=== PATIENT | male | born 1955 ===

== ENCOUNTER 2019-04-23 04:16 | Inpatient (IN) | payer OTHER, SELFPAY ==
[2019-04-23] MEDS ORDERED: ALBUTEROL 2.5 MG/3 ML NEB SOL ONE (05:10)
[2019-04-23] MEDS ORDERED: IPRATROPIUM BROM 0.5MG/2.5ML ONE (05:10)
[2019-04-23] MEDS ORDERED: METHYLPREDNISOLONE 125 MG INJ ONE (05:10)
[2019-04-23] MEDS ORDERED: NITROGLYCERIN 0.4 MG/TAB SL ONE (05:11)
[2019-04-23 05:28] LABS: Absolute Lymphocytes (CBC) 1.3 K/uL (0.7-4.9); Basophils % 0.7 % (0-1.3); Hematocrit 44.9 % (39.6-49.0); Lymphocytes % 21.1 % (15.3-44.8); MPV 8.5 fL (7.6-11.3); RBC Red Blood Cell Count 6.07 M/uL (4.33-5.43)
[2019-04-23 05:47] LABS: Albumin 3.3 g/dL (3.4-5.0); Bilirubin Total 0.6 mg/dL (0.2-1.0); Potassium 5.2 mmol/L (3.5-5.1); Protein, Total 7.9 g/dL (6.4-8.2); Troponin (Emerg Dept Use Only) 0.1 ng/mL (0.0-0.045)
[2019-04-23] MEDS ORDERED: METOPROLOL TARTRATE 5 MG/5 ML INJ IV ONE (06:10)
--- NOTE | 2019-04-23 07:08 | ER ---
Nurse's Notes [facility] Name: Ricardo Zuniga Age: 63 yrs Sex: Male : 1955 Arrival Date: 04/23/2019 Time: 04:21 Bed 18 Private MD: Diagnosis: acute kidney injury;Uncontrolled hypertension;Hypertensive urgency;shortness of breath Presentation: 04/23 04:35 Presenting complaint: Patient states: he awoke to go to restroom, pt became SOB. ak1 Transition of care: patient was not received from another setting of care. Onset of symptoms was April 23, 2019. Risk Assessment: Do you want to hurt yourself or someone else? Patient reports no desire to harm self or others. Initial Sepsis Screen: Does the patient meet any 2 criteria? No. Patient's initial sepsis screen is negative. Does the patient have a suspected source of infection? No. Patient's initial sepsis screen is negative. Care prior to arrival: None. 04:35 Acuity: BRYCE 3 ak1 04:35 Method Of Arrival: Ambulatory ak1 Triage Assessment: 04:35 General: Appears uncomfortable, slender, Behavior is calm, cooperative. ak1 Historical: - Allergies: 04:35 No Known Allergies; ak1 - Home Meds: 04:35 None [Active]; ak1 - PMHx: 04:35 Hypertension; ak1 - PSHx: 04:35 None; ak1 - Immunization history:: Adult Immunizations unknown. - Social history:: Smoking status: Patient uses tobacco products, smokes one-half pack cigarettes per day. - Ebola Screening: : No symptoms or risks identified at this time. Screenin:28 Abuse screen: Denies threats or abuse. Nutritional screening: No deficits noted. jb4 Tuberculosis screening: No symptoms or risk factors identified. Fall Risk None identified. Assessment: 04:28 General: Appears distressed, uncomfortable, Behavior is cooperative, anxious. Pain: jb4 Denies pain. Neuro: Level of Consciousness is awake, alert, obeys commands, Oriented to person, place, time, situation. Cardiovascular: Patient's skin is warm and dry. Rhythm is sinus rhythm. Respiratory: Airway is patent Respiratory effort is labored, pursed lip, Respiratory pattern is regular, symmetrical, Breath sounds are clear in left upper lobe and left lower lobe Breath sounds are diminished in right upper lobe, right middle lobe, right lower lobe, left posterior upper lobe, right posterior upper lobe, left posterior lower lobe, right posterior middle lobe and right posterior lower lobe Breath sounds with wheezes in right upper lobe, right middle lobe and right lower lobe. GI: No deficits noted. No signs and/or symptoms were reported involving the gastrointestinal system. : No deficits noted. No signs and/or symptoms were reported regarding the genitourinary system. EENT: No deficits noted. No signs and/or symptoms were reported regarding the EENT system. Derm: Skin is intact, Skin is dry, Skin is normal, Skin temperature is warm. Musculoskeletal: Circulation, motion, and sensation intact. Range of motion: intact in all extremities. 05:48 Reassessment: Patient appears in no apparent distress at this time. Patient and/or jb4 family updated on plan of care and expected duration. Pain level reassessed. Patient is alert, oriented x 3, equal unlabored respirations, skin warm/dry/pink. Patient denies pain at this time. Patient states feeling better. Patient states symptoms have improved. Respiratory: Airway is patent Respiratory effort is even, unlabored, Respiratory pattern is regular, symmetrical, Breath sounds are clear bilaterally. 06:48 Reassessment: Patient appears in no apparent distress at this time. Patient and/or jb4 family updated on plan of care and expected duration. Pain level reassessed. PT is resting in bed with eyes closed, respirations even and unlabored. 07:30 Reassessment: Patient appears in no apparent distress at this time. Patient and/or ph family updated on plan of care and expected duration. Pain level reassessed. Pt resting comfortably w/ eyes closed, respirations even and unlabored. 08:30 Reassessment: Patient appears in no apparent distress at this time. No changes from ph previously documented assessment. 09:35 Reassessment: Patient appears in no apparent distress at this time. Patient and/or ph family updated on plan of care and expected duration. Pain level reassessed. Patient is alert, oriented x 3, equal unlabored respirations, skin warm/dry/pink. Pt ambulated to restroom, urine sample obtained, report called to [facility] on 4th. 09:45 Reassessment: Pt sitting up in bed eating, will finish breakfast before going upstairs. ph 10:05 Reassessment: Patient appears in no apparent distress at this time. Dr Comer at bedside ph to speak w/ pt before going up to 4th floor. Vital Signs: 04:29 BP 223 / 100; Pulse 91; Resp 18; Temp 97.3(O); Pulse Ox 93% on R/A; Weight 49.9 kg (R); ak1 Height 5 ft. 2 in. (157.48 cm) (R); Pain 0/10; 05:44 BP 189 / 103; Pulse 89; Resp 16; Pulse Ox 96% on R/A; mt 05:45 BP 189 / 103; Pulse 92; Resp 18; Pulse Ox 97% on R/A; jb4 06:45 BP 170 / 86; Pulse 70; Resp 19; Pulse Ox 96% on R/A; jb4 08:00 BP 165 / 88; Pulse 72; Resp 16; Pulse Ox 97% on R/A; ph 09:22 BP 177 / 93; Pulse 73; Resp 18; Temp 97.9; Pulse Ox 96% on R/A; ph 04:29 Body Mass Index 20.12 (49.90 kg, 157.48 cm) ak1 ED Course: 04:21 Patient arrived in ED. ag3 04:23 Jesus Stacy, ELI is Primary Nurse. jb4 04:28 Patient has correct armband on for positive identification. Bed in low position. Call jb4 light in reach. Side rails up X 1. day care aide on. Pulse ox on. NIBP on. 04:29 Arm band placed on Patient placed in an exam room, on a stretcher, on pulse oximetry. ak1 04:32 EKG done, by ED staff, reviewed by Jerry Bee MD. mt 04:36 Triage completed. ak1 04:45 Jerry Bee MD is Attending Physician. ps1 05:19 Missed attempt(s): 22 gauge in left forearm. mt 05:40 Inserted saline lock: 20 gauge in right antecubital area, using aseptic technique. jb4 05:48 X-ray completed. Portable x-ray completed in exam room. Patient tolerated procedure kw well. 05:50 CXR XRAY In Process Unspecified. EDMS 07:06 Salvador Comer MD is Hospitalizing Provider. ps1 09:24 No provider procedures requiring assistance completed. Patient admitted, IV remains in ph place. Administered Medications: 05:15 Drug: Nitroglycerin 0.4 mg Route: Sublingual; jb4 05:15 Drug: DuoNeb (3:1) (2.5 mg - 0.5 mg) 3 ml Route: Nebulizer; jb4 05:48 Follow up: Response: No adverse reaction; Wheezing diminished jb4 05:35 Drug: Nitroglycerin 0.4 mg Route: Sublingual; jb4 05:40 Drug: Nitroglycerin 0.4 mg Route: Sublingual; jb4 05:47 Follow up: Response: No adverse reaction; Blood pressure is lowered jb4 05:44 Drug: SOLU-Medrol 125 mg Route: IVP; Site: right antecubital; jb4 06:50 Follow up: Response: No adverse reaction jb4 06:22 Drug: Metoprolol 5 mg Route: IVP; Site: right antecubital; jb4 06:50 Follow up: Response: No adverse reaction; Blood pressure is lowered jb4 Outcome: 07:07 Decision to Hospitalize by Provider. ps1 09:38 Admitted to Tele accompanied by tech, via wheelchair, room 413, with chart, Report ph called to ELI Holman 09:38 Condition: stable 09:38 Instructed on the need for admit. 10:18 Patient left the ED. rb1 Signatures: Dispatcher [employer] EDMS Kiesha Aleman Amber RN RN ak1 Maame Bermudez RN RN ph April Meredith RN RN rb1 Jesus Stacy RN RN jb4 Lisa Edouard mt, Phillip, MD MD ps1 Gomez, Alice ag3 Corrections: (The following items were deleted from the chart) 05:48 04:28 Cardiovascular: Patient's skin is warm and dry. jb4 jb4
--- NOTE | 2019-04-23 07:09 | EDPHYS ---
Physician Documentation [facility] Name: Ricardo Zuniga Age: 63 yrs Sex: Male : 1955 Arrival Date: 04/23/2019 Time: 04:21 Bed 18 Private MD: ED Physician Jerry Bee Historical: - Allergies: 04/23 04:35 No Known Allergies; ak1 - Home Meds: 04:35 None [Active]; ak1 - PMHx: 04:35 Hypertension; ak1 - PSHx: 04:35 None; ak1 - Immunization history:: Adult Immunizations unknown. - Social history:: Smoking status: Patient uses tobacco products, smokes one-half pack cigarettes per day. - Ebola Screening: : No symptoms or risks identified at this time. Vital Signs: 04:29 BP 223 / 100; Pulse 91; Resp 18; Temp 97.3(O); Pulse Ox 93% on R/A; Weight 49.9 kg (R); ak1 Height 5 ft. 2 in. (157.48 cm) (R); Pain 0/10; 05:44 BP 189 / 103; Pulse 89; Resp 16; Pulse Ox 96% on R/A; mt 05:45 BP 189 / 103; Pulse 92; Resp 18; Pulse Ox 97% on R/A; jb4 06:45 BP 170 / 86; Pulse 70; Resp 19; Pulse Ox 96% on R/A; jb4 08:00 BP 165 / 88; Pulse 72; Resp 16; Pulse Ox 97% on R/A; ph 09:22 BP 177 / 93; Pulse 73; Resp 18; Temp 97.9; Pulse Ox 96% on R/A; ph 04:29 Body Mass Index 20.12 (49.90 kg, 157.48 cm) ak1 MDM: 05:01 Patient medically screened. ps1 04/23 05:01 Order name: CBC with Diff; Complete Time: 05:57 ps1 04/23 05:01 Order name: CMP; Complete Time: 05:57 ps1 04/23 05:01 Order name: Troponin (emerg Dept Use Only); Complete Time: 05:57 ps1 04/23 05:01 Order name: CXR XRAY ps1 04/23 08:14 Order name: Urinalysis W/Microscopic EDMS 04/23 09:50 Order name: Urine Dipstick--Ancillary (enter results) 04/23 08:01 Order name: EKG Electrocardiogram; Complete Time: 08:21 EDHI 04/23 08:04 Order name: Diet Heart Healthy; Complete Time: 08:06 ph Administered Medications: 05:15 Drug: Nitroglycerin 0.4 mg Route: Sublingual; jb4 05:15 Drug: DuoNeb (3:1) (2.5 mg - 0.5 mg) 3 ml Route: Nebulizer; jb4 05:48 Follow up: Response: No adverse reaction; Wheezing diminished jb4 05:35 Drug: Nitroglycerin 0.4 mg Route: Sublingual; jb4 05:40 Drug: Nitroglycerin 0.4 mg Route: Sublingual; jb4 05:47 Follow up: Response: No adverse reaction; Blood pressure is lowered jb4 05:44 Drug: SOLU-Medrol 125 mg Route: IVP; Site: right antecubital; jb4 06:50 Follow up: Response: No adverse reaction jb4 06:22 Drug: Metoprolol 5 mg Route: IVP; Site: right antecubital; jb4 06:50 Follow up: Response: No adverse reaction; Blood pressure is lowered jb4 Disposition: 04/23/19 07:07 Hospitalization ordered by Salvador Comer for Inpatient Admission. Preliminary diagnosis are acute kidney injury, Uncontrolled hypertension, Hypertensive urgency, shortness of breath. - Bed requested for Telemetry/MedSurg (Inpatient). - Status is Inpatient Admission. rb1 - Condition is Stable. - Problem is new. - Symptoms have improved. UTI on Admission? No Signatures: Dispatcher [employer] [facility] Giselle Sheriff RN RN Mandy Bhatia RN RN ak1 April Meredith, RN RN rb1 Jesus Stacy, RN RN jb4 Jerry Bee MD MD ps1 Corrections: (The following items were deleted from the chart) 09:02 07:07 Hospitalization Ordered by Salvador Comer MD for Inpatient Admission. Preliminary ss diagnosis is acute kidney injury; Uncontrolled hypertension; Hypertensive urgency; shortness of breath. Bed requested for Telemetry/MedSurg (Inpatient). Status is Inpatient Admission. Condition is Stable. Problem is new. Symptoms have improved. UTI on Admission? No. ps1 10:18 09:02 04/23/2019 07:07 Hospitalization Ordered by Salvador Comer MD for Inpatient rb1 Admission. Preliminary diagnosis is acute kidney injury; Uncontrolled hypertension; Hypertensive urgency; shortness of breath. Bed requested for Telemetry/MedSurg (Inpatient). Status is Inpatient Admission. Condition is Stable. Problem is new. Symptoms have improved. UTI on Admission? No. ss
--- NOTE | 2019-04-23 08:50 | RAD REPORT ---
EXAM DESCRIPTION: Amie Single View04/23/2019 5:48 am CLINICAL HISTORY: Shortness of breath COMPARISON: none FINDINGS: Mild to moderate bibasilar interstitial lung opacities. Upper lobes appear clear Heart is mildly enlarged. Calcification is present within the medial left hemithorax IMPRESSION: Mild to moderate bilateral interstitial lung opacities. These all may be chronic. Combin ation of an acute process such as atypical pneumonia or pneumonitis superimposed over chronic changes another consideration Calcification medial left hemithorax may represent calcified lymph nodes or calcification of the pleu ra
[2019-04-23] MEDS ORDERED: ONDANSETRON 4 MG/2 ML VIAL IV PRN (09:34)
[2019-04-23] MEDS ORDERED: NA CHLORIDE 0.9% 1,000 ML IV SCH (09:34)
[2019-04-23] MEDS ORDERED: ACETAMINOPHEN 500 MG TAB PO PRN (09:34)
[2019-04-23] MEDS: METHYLPREDNISOLONE 40 MG INJ IV SCH ×2 (10:00→16:24)
[2019-04-23 10:53] LABS: Urine Appearance CLEAR; Urine Bilirubin NEGATIVE (NEG); Urine Blood 1+ (NEG); Urine Color YELLOW; Urine Glucose NEGATIVE (NEG); Urine Protein 2+ (NEG); Urine Urobilinogen 0.2 mg/dL (0.2-1.0)
[2019-04-23] MEDS ORDERED: SOD POLYSTYREN SUL 15 GM/60 ML UCUP PO ONE (11:17)
[2019-04-23 11:18] LABS: Urine Amorphous Sediment 1+ /HPF (NONE SEEN); Urine Bacteria <20 /HPF (NONE SEEN); Urine Culture Reflex Order NOT NEEDED; Urine RBC <5 /HPF (NONE SEEN)
[2019-04-23 11:28] LABS: Urine Blood 2+ (NEG); Urine Glucose NEGATIVE (NEG); Urine Protein 3+ (NEG); Urine Specific Gravity 1.015 (1.005-1.030); Urine pH 5.5 (5.0-7.0)
[2019-04-23] MEDS: NA CHLORIDE 0.9% 1,000 ML IV SCH (11:43)
[2019-04-23] MEDS: HYDRALAZINE HCL 25 MG TABLET PO SCH ×2 (11:43→21:15)
--- NOTE | 2019-04-23 12:26 | EKG ---
Test Date: 2019-04-23 Test Time: 04:30:36 Exam Proctor: MARYLIN MEASUREMENT RESULTS: Intervals: Rate: 79 MI: 140 QRSD: 88 QT: 400 QTc: 458 [place]: P: 79 MI: 140 QRS: -68 T: 79 INTERPRETIVE STATEMENTS: Normal sinus rhythm Left atrial enlargement Left axis deviation Left ventricular hypertrophy with repolarization abnormality Abnormal ECG No previous ECG available for comparison Electronically Signed On 04-23-19 12:25:02 CDT by Kermit Alcantara
[2019-04-23] MEDS ORDERED: LABETALOL HCL 100 MG/20 ML IV ONE (13:07)
--- NOTE | 2019-04-23 13:21 | RAD REPORT ---
EXAM DESCRIPTION: US - Renal Ultrasound-Complete - 04/23/2019 1:10 pm CLINICAL HISTORY: Acute renal insufficiency COMPARISON: None. FINDINGS: The right kidney measures 10 cm with an increased echotexture. A 1 centimeter cyst The left kidney measures 6 cm with an increased echotexture. 1.5 centimeter hypoechoic mass Hydronephrosis is not seen. No gross abnormality of bladder is seen IMPRESSION: Increased renal echotexture consistent with parenchymal disease 1.5 centimeter hypoechoic mass within the left kidney is indeterminate. Follow-up ultrasound in 3 mon ths recommended to assess stability
[2019-04-23 13:39] LABS: Urine Appearance CLEAR; Urine Bilirubin NEGATIVE (NEG); Urine Blood 2+ (NEG); Urine Color YELLOW; Urine Glucose NEGATIVE (NEG); Urine Protein 3+ (NEG); Urine Urobilinogen 0.2 mg/dL (0.2-1.0)
[2019-04-23 13:40] LABS: Urine Protein/Creatinine Ratio 5.66 ratio (<0.15)
[2019-04-23 13:44] LABS: Urine Microscopic Reflex ORDER UMIC
[2019-04-23 13:47] LABS: Urine Bacteria <20 /HPF (NONE SEEN); Urine Culture Reflex Order NOT NEEDED; Urine Mucus 1+ /HPF (NONE SEEN)
[2019-04-23] MEDS: IPRATROPIUM BROM 0.5MG/2.5ML NEB SCH ×2 (14:15→20:00)
[2019-04-23] MEDS: ALBUTEROL 2.5 MG/3 ML NEB SOL NEB SCH ×2 (14:15→20:00)
[2019-04-23] MEDS ORDERED: HYDRALAZINE HCL 20 MG/ML VIAL IV ONE (14:30)
--- NOTE | 2019-04-23 14:52 | CON ---
Date of Consultation: 04/23/2019 Reason For Consultation: Elevated BUN and creatinine. 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 According to him, at that time, he told him his creatinine in the 2s. The patient came to the hospital complaining of shortness of breath, c hest tightness, found to have elevation of BUN and creatinine, marginal hyperkalemia, and acidosis. For that reason, the patient was admitted and we have been consulted. The patient denied taking ibup rofen on a regular basis. According to him, he is taking it maybe once a month. Denied any recent c hange in his medication. No IV contrast. Upon admission, the patient's blood pressure was elevated up to 170. Reviewing his home medication, apparently patient is on only amlodipine. There is no previous lab data except for the patient mentioned that his baseline creatinine around 2. Follow up in [facility]. Allergies: NO KNOWN DRUG ALLERGIES. Social History: Ex-smoker. Denied alcohol. Denied drug abuse. Family History: Positive for hypertension. Positive for end-stage renal disease. Past Surgical History: Partial colon resection. No chemotherapy. Past Medical History: 1.Hypertension since 1999. 2.Chronic kidney disease, baseline creatinine in the 2s. 3.Colon cancer status post resection. No chemotherapy. Review of Systems: Head and Neck: No red eye. No ear pain. GI: No nausea. No vomiting. : No polyuria. No dysuria. No hematuria. EMAIL DEPLOYMENT SPECIALIST: Not applicable. Respiratory: Has shortness of breath. Cardiovascular: Has chest tightness. Endocrine: No polydipsia. Skin: No rash. Neuro: No neuropathy. Musculoskeletal: Has joint pain. Physical Examination: Vital Signs: When I saw the patient, blood pressure 170/97, pulse of 70, afebrile. Chest: Faint crackles on the base. Heart: S1 and S2 regular. Abdomen: Soft, nontender. Extremities: No edema. Neurologic: Alert and oriented x3. No tremor. Nonfocal. Laboratory Data: WBC 6.2, H and H of 14.4/44.9, platelets of 202. Sodium 138, potassium 5.2, bicarb 16, chloride 114, BUN 28, creatinine 2.2. Uric acid is still pending. Calcium 8.8. CK is still pe nding. Troponin was negative. Albumin 3.3. Urinalysis; specific gravity of 1.010, negative for uri ne infection, +2 protein. Current Medications: The patient on include: Norvasc 10 mg, breathing treatment, Lovenox. Imaging: Chest x-ray; cardiomegaly, only mild congestion. Assessment And Plan: 1.Acute kidney injury on chronic kidney disease, unknown baseline, proteinuric. I am going to go ah ead and get full workup for the patient and will monitor. Given the proteinuria, I am going to quant carolee it and send for serology because it is not that common to have that significant proteinuria with only hypertensive nephrosclerosis. I am going to go ahead and also send for PTH to evaluate the plush dresser nicity of the disease. 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 I will decrease the IV fluid to 50 per hour. 2.Hypertension, not controlled. We will place the patient on carvedilol and hydralazine and will fo llow up with the primary. I agree with the [facility]. I am going to be avoiding any SINDY inhibitor or ARB for the time being until clarified baseline kidney function. 3.Congestive heart failure with chest tightness. I am going to go ahead and get echocardiogram. We will get serial EKG. We will follow up with the primary. 4.Hyperkalemia, marginal. No need for Kayexalate for the time being. We will start gentle hydratio n. 5.Acidosis secondary to renal failure. I am going to send for potassium and chloride with sodium to evaluate RTA. Thank you, Dr. Comer, for allowing us to participate in the care of your patient. CHRISTA/LEONIDES Voice ID: [id number] Report ID: [id number]
[2019-04-23] MEDS: ENOXAPARIN 30 MG/0.3 ML SQ SCH (16:23)
[2019-04-23] MEDS: CARVEDILOL 12.5 MG TAB PO SCH (16:24)
--- NOTE | 2019-04-23 17:27 | ECHO ---
HEIGHT: 5 ft 5 in WEIGHT: 110 lb 0 oz DATE OF STUDY: 04/23/[address]: Ban Ackerman MD 2-DIMENSIONAL: YES M.MODE: YES DOPPLER: YES COLOR FLOW: YES TDS: PORTABLE: DEFINITY: BUBBLE STUDY: DIAGNOSIS: ACUTE KIDNEY INJURY CARDIAC HISTORY: CATHERIZATION: NO SURGERY: NO PROSTHETIC VALVE: NO PACEMAKER: NO MEASUREMENTS (cm) DIASTOLIC (NORMALS) SYSTOLIC (NORMALS) IVSd 0.9 (0.6-1.2) LA Diam 4.0 (1.9-4.0) LVEF 57% LVIDd 5.0 (3.5-5.7) LVIDs 3.5 (2.0-3.5) %FS 30% LVPWd 1.3 (0.6-1.2) Ao Diam 3.2 (2.0-3.7) 2 DIMENSIONAL ASSESSMENT: RIGHT ATRIUM: NORMAL LEFT ATRIUM: NORMAL RIGHT VENTRICLE: NORMAL LEFT VENTRICLE: LEFT VENTRICULAR HYPERTROPHY TRICUSPID VALVE: NORMAL MITRAL VALVE: NORMAL PULMONIC VALVE: NORMAL AORTIC VALVE: NORMAL PERICARDIAL EFFUSION: NONE AORTIC ROOT: NORMAL LEFT VENTRICULAR WALL MOTION: NORMAL DOPPLER/COLOR FLOW: MILD TO MODERATE AORTIC REGURGITATION. COMMENTS: MILD TO MODERATE AORTIC REGURGITATION. NORMAL LEFT VENTRICULAR EJECTION FRACTION. LEFT VENTRICULAR HYPERTROPHY. NO WALL MOTION ABNORMALITY. NO EFFUSION. TECHNOLOGIST: DANIEL CHAPPELL
[2019-04-23] MEDS: DULERA 100/5 (MOMETASONE/FORMOTEROL) INHALER IH SCH (21:14)
--- NOTE | 2019-04-23 21:23 | CON ---
Date of Consultation: 04/23/2019 Reason For Consultation: Hypertensive crisis and troponin of 0.1. History Of Present Illness: Mr. Zuniga is a 63-year-old black male who lives in [place], was here on vacation and developed chest substernal chest pressure without any radiation. Denied any nausea, vomiting, diaphoresis, PND, orthopnea, pedal edema, palpitations, or syncope. His symptoms were non exertional, nonradiating. He was noted to have a creatinine of 2.27. When he came into the hospital , systolic blood pressure was more than 200. His EKG showed LVH. Troponin showed 0.1. Symptoms are relieved now. The only medication he takes at home is amlodipine 10 mg daily. Past Medical History: Includes hypertension. Review of Systems: Negative. Social History: Negative for tobacco, alcohol, or drugs. Family History: Noncontributory. Medications: Include amlodipine. Physical Examination: Vital Signs: When I saw him, his pressure was 170/97, sinus rhythm. General: No acute distress. HEENT: Negative. Neck: Supple with no bruit, lymphadenopathy, JVD, or thyromegaly. Chest: Clear to auscultation and percussion. Cardiac: Revealed a regular rhythm and rate with S4 gallops. Abdomen: Benign. Extremities: Revealed no clubbing, cyanosis, or edema. Diagnostic Data: As stated earlier. Impression And Plan: Chest pressure, most likely secondary to severe hypertension, over 200. The tr oponin is probably related to the same. He has creatinine of 2.27 and I am certainly not anxious to do a heart catheterization on him with creatinine like that. I think we need to do an echocardiogram , which is pending. I think he should have an addition to his amlodipine, either hydralazine or beta -sadiq or a combination thereof. I recommended strongly that when he goes back home to [place] to get with his doctor, so he can get a stress test as an outpatient. If the echo is normal and blood pressure is better, he can certainly go home today. EMILI/LEONIDES Voice ID: [id number] Report ID: [id number]
--- NOTE | 2019-04-23 23:59 | HP ---
Date of Admission: 04/23/2019 Chief Complaint: Shortness of breath. Code status: Full History Of Present Illness: Patient is a 63-year-old male with past medical history of hypertension and undiagnosed COPD, who has been smoking for over 50 years, comes in with sudden onset of shortness of breath, wheezing, difficulty with worsening with exertion. Patient's shortness of breath, improved with rest. He felt that he had some chest tightness and was unable to catch his breath. Patient also reports that he has been out of his blood pressure medication for the past month. He lives in [place], however, currently is visiting his daughter and is on vacation. No known history of kidney disease. Patient came into the ER for further evaluation. Upon arrival, his blood pressure was elevated at 223/100. Patient was given metoprolol IV, which improved his blood pressure. He was given nitroglycerin sublingual as well as breathing treatments and steroids. Patient's condition improved with treatment , however, still was not back to baseline. Patient's workup revealed elevated kidney function of 2.27, unknown baseline. Potassium was elevated at 5.2. Patient was then referred for admission. When seen in the ER, he was awake, alert, oriented x3, appeared to be in some mild respiratory distress. Past Medical History: Hypertension and likely undiagnosed COPD. Past Surgical History: Patient had colon perforation, unclear if this is colon or small bowel, however, states that he had surgery a year ago with end-to-end anastomosis. Allergies: NO KNOWN DRUG ALLERGIES. Medications: Currently, not taking any medications for the past month. Social History: Patient smokes pack a day, has been smoking for approximately 50 years. Denies any alcohol use or illicit drug use. Lives in [place]. Family History: Denies any premature coronary artery disease in the family. Review of Systems: An 11-point system reviewed, negative except as per HPI. Physical Examination: Vital Signs: Blood pressure 223/100, pulse 91, respirations 18, temperature 97.3, O2 of 93% on room air. Blood pressure improved to 177/93 with treatment. BMI is 20. HEENT: Normocephalic, atraumatic PERRLA. EOMI moist mucous membranes. Oropharynx is clear. General: Awake, alert, oriented x3. Some mild distress, frail, cachectic appearing male. Neck: Supple. No JVD trachea midline. CV: S1, S2. Regular rate and rhythm. Peripheral pulses weak bilaterally. Respiratory: Diminished breath sounds some wheezing present. No use of accessory muscles. No stridor. Gastrointestinal: Abdomen is soft, nontender, nondistended. Positive bowel sounds. No guarding or rigidity. No thyromegaly. Extremities: No clubbing, cyanosis, or edema. No calf tenderness. Neuro: Cranial nerves 2-12 intact grossly. No focal neurological deficits. Speech is normal. Strength is symmetric in bilateral upper and lower extremities. Skin: No rashes. Normal skin turgor. Psych: Mood is okay. Affect is full. Insight and judgment are good. Laboratory Data: Sodium 138, potassium 5.2, chloride 114, CO2 of 16, BUN 28, creatinine 2.7, glucose 82, calcium 8.8, troponin 0.10, albumin 3.3. WBC 6.2, H and H 14.4 and 44.9, platelets 202. UA: Negative nitrite, negative leukocyte esterase. Microscopy is pending. Chest x-ray shows small to moderate bilateral interstitial lung opacities. These all may be chronic combination of an acute process such as atypical pneumonia or pneumonitis superimposed over chronic changes is another consideration. Calcification of the medial left hemithorax may represent calcified lymph nodes or calcification of the pleura. Assessment And Plan: A 63-year-old male with: 1. Hypertensive emergency. Patient's blood pressure is 200/100s, improved with nitroglycerin and Lopressor. Patient has been out of his blood pressure medications for the past month. We will restart home medications and use hydralazine p.r.n. for systolic greater than 160. Patient seemed to have end- organ damage with acute kidney injury. 2. Acute kidney injury, unknown baseline. We will consult Nephrology. Continue with IV fluids and monitor creatinine level. Avoid NSAIDs. 3. Hyperkalemia. Potassium is 5.2. We will give Kayexalate and repeat potassium level likely secondary to acute kidney injury. 4. Elevated troponin level likely secondary to hypertensive emergency. Patient denies any chest pain, initially had some chest tightness, most likely related to chronic obstructive pulmonary disease. 5. Acute chronic obstructive pulmonary disease exacerbation. We will continue with steroids and breathing treatments. Patient will need to be discharged on some maintenance inhalers and he will need pulmonary function testing as an outpatient. Chest x-ray shows some chronic changes. Doubt any pneumonia. We will check procalcitonin level. WBC count is normal. No indications for antibiotics at this time. No fevers or chills. Does not appear to be septic. 6. Cachexia with failure to thrive. BMI of 18. Patient denies any recent weight loss. Patient needs to have cancer screenings, may be related to chronic smoking. 7. Gastrointestinal and deep venous thrombosis prophylaxis with ranitidine and Lovenox renally dosed. Plan: Admit the patient to Med-Surg, place as inpatient. Length of stay greater than 2 midnights. SURESH Voice ID: [id number] MTDD
[2019-04-24] MEDS: METHYLPREDNISOLONE 40 MG INJ IV SCH ×2 (00:29→09:26)
[2019-04-24] MEDS: ALBUTEROL 2.5 MG/3 ML NEB SOL NEB SCH ×4 (02:00→19:55)
[2019-04-24] MEDS: IPRATROPIUM BROM 0.5MG/2.5ML NEB SCH ×4 (02:00→19:55)
[2019-04-24 04:17] LABS: Absolute Lymphocytes (CBC) 0.6 K/uL (0.7-4.9); Hematocrit 39.5 % (39.6-49.0); Lymphocytes % 6.3 % (15.3-44.8); RBC Red Blood Cell Count 5.37 M/uL (4.33-5.43)
[2019-04-24 04:44] LABS: Albumin 2.9 g/dL (3.4-5.0); Bilirubin Total 0.4 mg/dL (0.2-1.0); Blood Morphology Comment NOT SEEN (NOT SEEN); Magnesium 1.7 mg/dL (1.8-2.4); Phosphorus 3.1 mg/dL (2.5-4.9); Platelet Estimate ADEQ; Potassium 3.6 mmol/L (3.5-5.1); Protein, Total 6.9 g/dL (6.4-8.2); Thyroid Stimulating Hormone 1.02 uIU/mL (0.360-3.740); Urine White Blood Cell Casts OK
[2019-04-24] MEDS: CARVEDILOL 12.5 MG TAB PO SCH (06:21)
[2019-04-24] MEDS: NA CHLORIDE 0.9% 1,000 ML IV SCH (06:23)
[2019-04-24] MEDS: DULERA 100/5 (MOMETASONE/FORMOTEROL) INHALER IH SCH ×2 (09:00→21:00)
[2019-04-24] MEDS ORDERED: AMLODIPINE 5 MG TAB PO ONE (09:05)
[2019-04-24] MEDS: HYDRALAZINE HCL 25 MG TABLET PO SCH ×3 (09:26→22:14)
--- NOTE | 2019-04-24 11:08 | PN ---
Mr. Zuniga is feeling fine. Never had any chest pain. He had a troponin level of 0.1 associated w ith very high blood pressure and a creatinine of 2.44. It is actually worse today than yesterday. H is blood pressure is still not under good control, although it is markedly better than it was. Mr. Gilberto fitzpatrick has a history of poor medical compliance. He was not on any medications when he came in. Tod ay, he is feeling well. I think we should probably add amlodipine to his present regimen and get his blood pressure little lower. I would not worry about amlodipine being detrimental to the kidneys at all, but he needs to have a systolic blood pressure below 140, have any hope of his kidneys getting better, so far, they are getting worse. YURI/LEONIDES Voice ID: [id number] Report ID: [id number]
[2019-04-24 13:30] LABS: Rheumatoid Factor NEG (NEG)
--- NOTE | 2019-04-24 15:09 | PN ---
Date of Progress Note: 04/24/2019 Subjective: Patient was admitted with uncontrolled hypertension and chest pain. Physical Examination: Vital Signs: Today, blood pressure of 163/99, pulse of 68. Chest: Clear to auscultation. Heart: S1, S2. Systolic murmur. Abdomen: Soft, nontender. Extremities: No edema. Laboratory Data: H and H 12.6/39.5. Sodium 140, potassium 3.6, bicarb 15, BUN 34, creatinine 2.4, c alcium 8, phosphorus 3.1, magnesium 1.7. PTH 164. Urinalysis, +2 blood. P-C ratio is 5. Serology is still pending. Renal ultrasound showing 10/6 small left kidney. Current Medications: Amlodipine 5, carvedilol 12.5, hydralazine 25 t.i.d. Assessment And Plan: 1.Chronic kidney disease, possible secondary to renal artery stenosis given the severe disproportion in the kidney size. Normal volume. No uremic symptoms. Proteinuric with nephrotic range proteinur ia. Patient is going to need full workup as outpatient including possible need for kidney biopsy and MRA for his renal artery evaluation and given the presence of the nephrotic range proteinuria as I m entioned, patient may need kidney biopsy and patient is going to need to follow up with the serology. Patient does not live here in town and would like to go back to his city in [place]. I gave the p atient my information and I told him to see a continuous improvement coordinator right away and I will be more than happy t o speak to that continuous improvement coordinator. Patient verbalized understanding. 2.Hypertension, possible renal artery stenosis, as above. Continue current medication. 3.Nephrotic range proteinuria. I am going to be reluctant currently to add any SINDY inhibitor or ARB given the picture of possible renal artery stenosis and given the unknown baseline for the time erasmoin g. Continue current treatment for the time being. We will follow up serology. Patient needs to rul e out from membranous given the history of malignancy that is the reason we are proposing for kidney biopsy. 4.Acidosis. I will start the patient on oral bicarb. 5.Bronchitis, chronic obstructive pulmonary disease exacerbation. As up above with the primary. CHRISTA/LEONIDES Voice ID: [id number] Report ID: [id number]
--- NOTE | 2019-04-24 16:48 | PN ---
Date of Progress Note: 04/24/2019 Subjective: Patient seen and examined, chart reviewed, and case discussed with RN and Dr. Ackerman. Patient is doing better, still has uncontrolled blood pressure, no longer having any chest tightness . Shortness of breath has improved, but not back to baseline. Medication List: Reviewed. Physical Examination: Vital Signs: Temperature 98.5, heart rate 94, blood pressure 175/80, respirations 20, O2 93% on room air. General: Awake, alert, oriented x3, not in any acute distress, elderly male, frail, cachectic. BMI 18. CV: S1, S2. Regular rate and rhythm. Peripheral pulses present. Respiratory: Diminished breath sounds. Wheezing has resolved. No stridor. No use of accessory mus cles. Gastrointestinal: Abdomen is soft, nontender, nondistended. Positive bowel sounds. No guarding or rigidity. Extremities: No clubbing, cyanosis, or edema. Neurologic: Nonfocal. Laboratory Data: Sodium 140, potassium 3.6, chloride 114, CO2 of 15, BUN 34, creatinine 2.44, glucos e 116, uric acid 7.7, calcium 8, phosphorus 3.1, magnesium 1.7. TSH 1.02. PTH is 164. Immune gigi p pending. Hepatitis and HIV panel pending as well. WBC 9.6, H and H 12.6 and 39.5, platelets 198. Echocardiogram shows EF of 57%, left ventricular hypertrophy, [id number] aortic regurgitation, no effusion, no wall motion abnormality. Renal ultrasound shows increased renal echotexture consist ent with parenchymal disease, 1.5 cm hypoechoic mass within the left kidney is indeterminate. Patien t needs followup ultrasound in 3 months to recommend and assess for stability. Assessment: A 63-year-old male with: 1.Hypertensive emergency. Patient's blood pressure is better controlled now. No further chest pain . Troponin leak was due to the elevated blood pressure. Echocardiogram does not show any wall motio n abnormality. Medications have been adjusted. Appreciate Dr. Kurtz' input. 2.Acute on chronic kidney injury stage 3. Patient apparently does have history of chronic kidney di sease, sees a specialist in [place]. However, creatinine appears to be above baseline, which he sta brianna is 2. Creatinine currently worsening. Appreciate Nephrology input. Workup is underway. 3.Incidental finding of left renal mass. Patient needs repeat ultrasound in 3 months to assess for stability. 4.Hypertensive heart disease. Echocardiogram shows left ventricular hypertrophy. This is secondary to uncontrolled blood pressure. 5.Hyperkalemia, corrected. 6.Hypomagnesemia. We will replace and monitor. 7.Elevated troponin level secondary to hypertensive emergency. 8.Acute chronic obstructive pulmonary disease exacerbation, improving. We will switch steroids to p .o. Continue breathing treatments. 9.Cachexia with failure to thrive. BMI 18. Patient counseled regarding cancer screening including colonoscopy, prostate exam, and PSA amongst other cancer related screenings to be done by the primary care physician. 10.Acute anemia, microcytic hyperchromic, likely iron deficiency. Hemoglobin dropped from 14 to 12. Continue to monitor. 11.Nicotine dependence with cigarette smoking, continuous. Counseled. 12.Deep vein thrombosis prophylaxis with Lovenox. Plan: Adjust medications for blood pressure. If continues to improve, likely discharge in a.m. once cleared by Cardiology and Nephrology. /LEONIDES Voice ID: [id number] Report ID: [id number]
[2019-04-24] MEDS: ENOXAPARIN 30 MG/0.3 ML SQ SCH (17:13)
[2019-04-24] MEDS: CARVEDILOL 25 MG TAB PO SCH (17:13)
[2019-04-24] MEDS: predniSONE 20 MG TAB PO SCH (22:14)
[2019-04-24] MEDS: SODIUM BICARB 325 MG TAB PO SCH (22:14)
[2019-04-25] MEDS: IPRATROPIUM BROM 0.5MG/2.5ML NEB SCH ×2 (01:48→08:25)
[2019-04-25] MEDS: ALBUTEROL 2.5 MG/3 ML NEB SOL NEB SCH ×2 (01:48→08:25)
[2019-04-25 04:18] LABS: Absolute Lymphocytes (CBC) 0.5 K/uL (0.7-4.9); Basophils % 0.3 % (0-1.3); Hematocrit 38.1 % (39.6-49.0); Lymphocytes % 4.5 % (15.3-44.8); MPV 8.9 fL (7.6-11.3); RBC Red Blood Cell Count 5.16 M/uL (4.33-5.43)
[2019-04-25 04:30] LABS: Albumin 2.7 g/dL (3.4-5.0); Bilirubin Total 0.3 mg/dL (0.2-1.0); Phosphorus 2.6 mg/dL (2.5-4.9); Potassium 4.4 mmol/L (3.5-5.1); Protein, Total 6.4 g/dL (6.4-8.2)
[2019-04-25] MEDS: CARVEDILOL 25 MG TAB PO SCH (06:34)
[2019-04-25] MEDS: SODIUM BICARB 325 MG TAB PO SCH (07:36)
[2019-04-25] MEDS: predniSONE 20 MG TAB PO SCH (07:36)
[2019-04-25] MEDS: DULERA 100/5 (MOMETASONE/FORMOTEROL) INHALER IH SCH (07:42)
[2019-04-25] MEDS: HYDRALAZINE HCL 25 MG TABLET PO SCH (08:19)
[2019-04-25] MEDS ORDERED: AMLODIPINE 5 MG TAB PO SCH (09:00)
--- NOTE | 2019-04-26 06:08 | DS ---
Date of Discharge: 04/25/2019 Consultants: 1.Dr. Ackerman with Nephrology. 2.Dr. Kurtz and Dr. Alcantara with [facility]. Admitting Diagnoses: 1.Hypertensive emergency. 2.Elevated troponin level. 3.Acute kidney injury. 4.Hyperkalemia. 5.Acute chronic obstructive pulmonary disease exacerbation. 6.Flash pulmonary edema. 7.Cachexia, failure to thrive. BMI 18. Discharge Diagnoses: 1.Hypertensive emergency, resolved. 2.Troponin elevation secondary to above. 3.Acute on chronic kidney injury stage III. 4.Incidental finding of left renal mass. Repeat ultrasound in 3 months to assess for stability. 5.Hypertensive heart disease. 6.Hyperkalemia, corrected. 7.Hypomagnesemia, replace and monitor. 8.Acute chronic obstructive pulmonary disease exacerbation, resolved. 9.Cachexia, failure to thrive, BMI 18. 10.Acute microcytic hypochromic anemia, likely due to iron deficiency. 11.Nicotine dependence with cigarette smoking, continue if uncomplicated. Hospital Course: Patient is a 63-year-old male visiting his daughter in town from [place]. Past me dical history of hypertension, comes in with shortness of breath. Patient found to have hypertensive emergency. Blood pressure was in the 200s/100. Patient was admitted for further evaluation. His b lood pressure medications were adjusted. He was placed on p.r.n. medications. His potassium was cor rected. He did have elevated kidney function and elevated troponin level. His kidney function most likely had some chronicity to it as he does report a history of chronic kidney disease. However, his baseline is around 2. He did have acute on chronic kidney injury at this visit. He was given IV fl uids and he improved. There was no history of chronic NSAIDs. Patient's blood pressure was difficul t to manage, however, with multiple additions including hydralazine, Coreg, and amlodipine. He was a ble to be controlled. He was seen by Cardiology due to troponin elevation caused by hypertensive faby rgency with end-organ damage. Echocardiogram showed normal ejection fraction. He did have left vent ricular hypertrophy from years of long-standing uncontrolled hypertension. Regarding his shortness of breath, patient was found to have COPD exacerbation. Patient has been smo luis a for over 50 years. He was started on breathing treatments and steroids. His condition improved significantly. Patient was also recommended to have cancer screening done as an outpatient. He has failure to thrive with BMI of 18. He needs to have a colonoscopy, prostate exam, PSA level amongst other routine cancer screenings appropriate for his age. The patient was then cleared for discharge once his blood pressure was more stable and his shortness of breath had improved. He will need to fo llow up with his primary care physician in [place] as soon as possible. He needs to establish care with a breaker boss and needs to have an outpatient stress test done. He needs to also establish car e with Nephrology in [place] and have MRA of his renal arteries to rule out renal artery stenosis. He will need a repeat ultrasound of his kidneys to assess for stability of the renal mass that was fo und. This mass may be a cyst or may be malignant. Patient is not a candidate for biopsy at this [facility] due to uncontrolled blood pressure and being at risk for uncontrolled retroperitoneal bleeding. Diet: Renal. Activity: As tolerated. Medications: As per medication reconciliation list. Physical Examination: General: Awake, alert, and oriented x3, elderly male. CV: S1 and S2. Respiratory: Moving air well bilaterally. Abdomen: Soft, nontender, nondistended. Positive bowel sounds. Extremities: No clubbing, cyanosis, or edema. Neurologic: Nonfocal. Time: Total time spent discharging the patient was 37 minutes. SURESH Voice ID: [id number] Report ID: [id number]
[2019-04-26 14:45] LABS: HIV AG/AB 4TH GEN Non-reactive (Non-reactive)
[2019-04-26 16:59] LABS: Hepatitis C Virus RNA (PCR)log <1.18 log IU/mL
[2019-04-27 09:48] LABS: Vitamin D 1,25-Dihydroxy Total 42 pg/mL (18-72)
[2019-04-28 04:23] LABS: HBsAG Nonreactive (Nonreactive)
[2019-04-29 00:01] LABS: Albumin, (SPE) 3.2 g/dL (3.8-4.8); Alpha-1-Globulins 0.3 g/dL (0.2-0.3); Alpha-2-Globulins 0.9 g/dL (0.5-0.9); Gamma Globulins 1.1 g/dL (0.8-1.7); INTERPRETATION REPORT
[2019-04-29 15:42] LABS: Vitamin D,1,25-OH2, D2 <8 pg/mL
== END 2019-04-25 11:23 | disposition home or self-care (01) | DRG 305 ==
LOC: ER 04:16 → ERHOLD 08:07 → 4TH 09:36
PROVIDERS: ADMIT Family Medicine; ATTEND Family Medicine
DX: I16.1 Hypertensive emergency (principal); N17.9 Acute kidney failure, unspecified; J44.1 Chronic obstructive pulmonary disease with (acute) exacerbation; R64 Cachexia; Z68.1 Body mass index [BMI] 19.9 or less, adult; E44.1 Mild protein-calorie malnutrition; E87.2 Acidosis; I13.0 Hypertensive heart and chronic kidney disease with heart failure and stage 1 through stage 4 chronic kidney disease, or unspecified chronic kidney disease; Z91.19 Patient's noncompliance with other medical treatment and regimen; Z91.14 Patient's other noncompliance with medication regimen; E87.5 Hyperkalemia; N18.3 Chronic kidney disease, stage 3 (moderate); N28.89 Other specified disorders of kidney and ureter; D50.9 Iron deficiency anemia, unspecified; E83.42 Hypomagnesemia; F17.210 Nicotine dependence, cigarettes, uncomplicated; Z85.038 Personal history of other malignant neoplasm of large intestine; Z90.49 Acquired absence of other specified parts of digestive tract
CPT/HCPCS: 36415; 71045; 76770; 80053; 80069; 81001; 81003; 81015; 82435; 82550; 82570; 82652; 83520; 83735; 83970; 84132; 84145; 84156; 84165; 84300; 84443; 84484; 84550; 85025; 86021; 86038; 86160; 86225; 86317; 86430; 86704; 86706; 87340; 87389; 87522; 93005; 93306; 94640; 94760; 96374; 96375; 99285; J0360; J1650; J2920; J2930; J7030; J7512; J7606